=== PATIENT | female | born 1955 | race Caucasian/White ===

== ENCOUNTER → 2023-11-20 15:30 | Outpatient (REF) | payer MEDICARE, OTHER, SELFPAY | LOC: PAVMRI 15:30 | PROVIDERS: ATTENDING PHYSICIAN Physical Medicine & Rehabilitation; FAMILY PHYSICIAN Family Medicine | DX: M54.16 Radiculopathy, lumbar region (principal) | CPT/HCPCS: 72148 ==

== ENCOUNTER → 2024-04-17 14:31 | Outpatient (REF) | payer MEDICARE, OTHER, SELFPAY | LOC: WDC 14:31 | PROVIDERS: ATTENDING PHYSICIAN Family Medicine | DX: Z12.31 Encounter for screening mammogram for malignant neoplasm of breast (principal) | CPT/HCPCS: 77063; 77067 ==

== ENCOUNTER → 2024-11-06 12:53 | Outpatient (REF) | payer MEDICARE, OTHER, SELFPAY | LOC: HWRAD 12:53 | PROVIDERS: ATTENDING PHYSICIAN Family Medicine | DX: Z87.891 Personal history of nicotine dependence (principal) | CPT/HCPCS: 71271 ==

== ENCOUNTER → 2024-12-17 14:19 | Outpatient (REF) | payer MEDICARE, OTHER, SELFPAY | LOC: HWRAD 14:19 | PROVIDERS: ATTENDING PHYSICIAN Internal Medicine Critical Care Medicine; FAMILY PHYSICIAN Family Medicine | DX: R91.8 Other nonspecific abnormal finding of lung field (principal) | CPT/HCPCS: 71250 ==

== ENCOUNTER 2024-12-23 06:15 | Day surgery (SDC) | payer MEDICARE, OTHER, SELFPAY ==
[2024-12-18 12:58] VITALS: BMI 21.8
[2024-12-23] VITALS (9 sets, daily range): BP systolic 100–156; BP diastolic 60–85; BMI 21.8
== END 2024-12-23 12:40 | disposition home or self-care (01) ==
LOC: SDS 06:15
PROVIDERS: ATTENDING PHYSICIAN Internal Medicine Critical Care Medicine
DX: C34.11 Malignant neoplasm of upper lobe, right bronchus or lung (principal); R91.1 Solitary pulmonary nodule; R59.0 Localized enlarged lymph nodes
CPT/HCPCS: 31629; 31623; 31628; 31627; 31624; 31654; 88173; 88305; 71045; 76000; 81459; 88112; 88333; 88341; 88342; 94640; C1887

== ENCOUNTER → 2025-01-03 09:04 | Outpatient (REF) | payer MEDICARE, OTHER, SELFPAY | LOC: PAVMRI 09:04 | PROVIDERS: ATTENDING PHYSICIAN Internal Medicine Critical Care Medicine; FAMILY PHYSICIAN Family Medicine; REFERRING PHYSICIAN Thoracic Surgery (Cardiothoracic Vascular Surgery) | DX: C34.90 Malignant neoplasm of unspecified part of unspecified bronchus or lung (principal) | CPT/HCPCS: 70553; A9575 ==

== ENCOUNTER → 2025-01-08 08:22 | Outpatient (REF) | payer MEDICARE, OTHER, SELFPAY | LOC: MRI 08:22 | PROVIDERS: ATTENDING PHYSICIAN Internal Medicine Critical Care Medicine; FAMILY PHYSICIAN Family Medicine | DX: C34.90 Malignant neoplasm of unspecified part of unspecified bronchus or lung (principal); E27.8 Other specified disorders of adrenal gland | CPT/HCPCS: 74183; A9575 ==

== ENCOUNTER 2025-01-21 07:27 | Inpatient (IN) | payer MEDICARE, OTHER, SELFPAY ==
[2025-01-15 12:39] VITALS: BMI 23.8
[2025-01-15 12:58] LABS: % Basophils 0.5 % (0-2); % Eosinophils 6.9 % (0-6); % Immature Granulocytes 0.2 % (0-0.5); % Lymphocytes 30.2 % (20.5-51.1); % Monocytes 6.7 % (1.7-9.3); % Neutrophils 55.5 % (42.2-75.2); Absolute Eosinophils 0.4 10^3/uL (0-0.7); Absolute Lymphocytes 1.9 10^3/uL (1.2-3.4); Absolute Monocytes 0.4 10^3/uL (0.1-0.6); Absolute Neutrophils 3.5 10^3/uL (1.4-6.5); Hematocrit 38.8 % (37.0-47.0); Hemoglobin 12.9 g/dL (12.0-16.0); Mean Corp Hgb Conc. 33.2 g/dL (33.0-37.0); Mean Corpuscular Hgb 32.7 pg (27.0-31.0); Mean Corpuscular Volume 98.2 fL (81.0-99.0); Mean Platelet Volume 10.3 fL (7.4-10.4); Nucleated Red Blood Cells % 0 %; Platelet Count 219 10^3/uL (130-400); Red Blood Cell Count 3.95 10^6/uL (4.20-5.40); Red Cell Dist. Width 11.9 % (11.5-14.5); White Blood Cell Count 6.3 10^3/uL (4.8-10.8)
[2025-01-15 13:03] LABS: Urine Albumin Negative (Neg - Trace); Urine Bilirubin Negative (Negative); Urine Character Clear (Clear); Urine Color Yellow; Urine Glucose Negative (Negative); Urine Ketone Negative (Negative); Urine Leukocyte Negative (Negative); Urine Nitrite Negative (Negative); Urine Occult Blood Negative (Negative); Urine Urobilinogen Negative (Neg - 1+)
[2025-01-15 13:05] LABS: INR 0.95; PT 13.1 Sec (11.4-14.6)
[2025-01-15 13:06] LABS: APTT 30.7 Sec (23.4-35.0)
--- NOTE | 2025-01-15 13:37 | CM ---
Chart reviewed. Met with the patient in PAT. Reviewed preoperative and postoperative instructions and restrictions, along with showering guidelines. Gave patient 2 soaps. Patient is agreeable to a home visit by CT Transitional RN. Patient is
independent of ADLS, lives with her in a 2 STH, 1st level set up, 1-2 S[place], 0 DME. Plan is for the patient to return home with CT Transitional RN. CM to follow
[2025-01-15 14:12] LABS: ALT (SGPT) 33 U/L (0-35); AST (SGOT) 33 U/L (14-36); Albumin 4.6 g/dl (3.5-5.0); Alkaline Phosphatase 106 U/L (38-126); Blood Urea Nitrogen 15 mg/dl (7-17); Calcium 9.3 mg/dl (8.4-10.2); Carbon Dioxide 25 mmol/L (22-30); Chloride 105 mmol/L (98-107); Direct Bilirubin 0.1 mg/dl (0.0-0.4); Estimated Creatinine Clearance 59 ml/min; Glucose 83 mg/dl (70-99); Potassium 4.5 mmol/L (3.5-5.1); Sodium 138 mmol/L (135-145); Total Bilirubin 0.6 mg/dl (0.2-1.3); eGFR > 60.00
[2025-01-21] VITALS (12 sets, daily range): BP systolic 96–152; BP diastolic 54–75; BMI 24.4
--- NOTE | 2025-01-21 08:30 | PTCARENOTE ---
Addendum entered by Ashli Lambert RN 01/21/25 10:31:
pt transported to OR via bed w/ x3 and sequentials, went home.
Original Note:
pt admitted to CVICU, pt states showered last night and this am w/ CHG soap. pt states had black coffee, water and Pedialyte this am, CONDITIONER TENDER Teresa aware, otherwise NPO. admission and home meds reviewed. pt washed w/ CHG wipes, gown changed. ABO
drawn. VS completed. surgical site marked by Dr. Ferguson. at bedside.
--- NOTE | 2025-01-21 11:07 | W.CVOR.SURPR ---
CVOR Surgeon Immed Pre Op
-
I have examined this patient prior to performance of the scheduled procedure.
The patient's condition is unchanged from the time of the dictated/written History and
Physical and the patient is able to undergo the scheduled procedure.
RATS RUL + LN, possible segment/wedge
[2025-01-21 11:11] LABS: Urine Albumin Negative (Neg - Trace); Urine Bilirubin Negative (Negative); Urine Character Clear (Clear); Urine Color Yellow; Urine Glucose Negative (Negative); Urine Ketone Negative (Negative); Urine Leukocyte Negative (Negative); Urine Nitrite Negative (Negative); Urine Occult Blood Negative (Negative); Urine Urobilinogen Negative (Neg - 1+)
--- NOTE | 2025-01-21 12:14 | CM ---
pt in OR today, cm to follow
--- NOTE | 2025-01-21 13:17 | W.PN.CT.SURG ---
CT Surgery Operative Note
-
THORACIC SURGERY OPERATIVE REPORT
Preoperative Diagnosis: Pulmonary adenocarcinoma the right upper lobe
Postoperative Diagnosis: Same
Procedure(s) Performed:
1. Robotic assisted thoracic surgery [RATS]
2. Extended wedge resection of the right upper lobe with intraoperative frozen section for margin
3. Radical lymph node dissection
4. Preoperative serratus regional block by anesthesia
Date of Surgery: 01/21/2025
Comorbidities:
1. Right upper lobe pulmonary adenocarcinoma
2. Tobacco abuse, former
3. Hepatitis C
4. Degenerative disc disease
5. Anxiety/depression
6. GERD
Attending Surgeon: Alex Ferguson MD, MS
Assistants: Kelli Moreno PA-C (present and necessary to diver assistant, exchanging robotic instruments, retraction, suction, exposure, suture management, and wound closure under my direction)
Anesthesiology: Ehsan Mcgrath MD and Victoriano Padilla CRNA
Scrub and Circulating RNs: Mel Armando RN, Oscar Miranda RN
Anesthesia: Dual Lumen GETA
EBL: 80 cc
Products: None
Indication(s) for Procedures: This is a 69-year-old female who was found to have a bilobed 1.9 x 1.6 cm soft tissue mass in the lateral aspect the right upper lobe. Biopsy came back as pulmonary adenocarcinoma. Lymph node assessment was negative.
She was offered surgical resection as her primary form of treatment which she accepted.
Findings: There were no obvious intrathoracic metachronous lesions. There was obvious puckering on the surface of the lung at the right upper lobe corresponding to the location of the mass. She did well developed fissures. Lymph nodes were
harvested in a circumferential fashion as usual. I did develop the fissure in order to allow more separation of the lobes to facilitate the stapler. Using 3 loads of green load staplers, was able to obtain a good margin around the mass, this was
sent out to pathology which was verified to be a negative margin (>5mm with the staple line excluded). Overall there was a paucity of lymph nodes, any that were seen were harvested. There is no significant air leak at conclusion of the case and no
significant loss of tidal volume.
Specimen(s):
Station 8, x 1 nodes
Station 10, x 2 nodes
Station 2/4, x 2 nodes
Station 7, x 2 nodes
Extended wedge of the right upper lobe
Description of Procedure: The patient was taken to the operating room. Induction via general anesthesia with endotracheal intubation was performed and peripheral venous access and arterial monitoring were inserted. Their identity and procedure to be
performed were verified and they were positioned with the right side up on the operating table. The patient was then prepped and draped in a sterile fashion. A preoperative time-out was performed with all members of the team present. A Veress
needle was used to insufflate the chest after isolating the lung. An 8 mm port was placed in the midaxillary line at approximately the eighth intercostal space and confirmed to be intrathoracic without significant pulmonary injury. The chest was
surveyed for any evidence of metastatic disease. Patient tolerate insufflation without complication. 2 additional 12 mm trocars were placed on either side under camera guidance and a third 8 mm trocar was placed along the back. A 12 mm assistant manager/embalmer
port was placed in the 11th intercostal space above the insertion of the diaphragm.
The thoracic cavity was inspected for evidence of metastatic disease. None was observed. We started with mobilization of the inferior pulmonary ligament. We worked our way clockwise dissecting out the hilum and harvest any lymph nodes identified.
The fissure was then developed in order to facilitate the stapler. The mass was visible on the surface of the lung with puckering of the visceral pleura. I marked this out to provide a good margin of approximately 2 cm using a bipolar cautery.
Next multiple fires of 60 mm green load staplers were performed to resect the mass. This was then placed into a specimen bag and extracted from the chest cavity and sent off for intraoperative frozen section. This came back as negative.
Additional lymph nodes were then harvested as part of the staging process. CoSeal was used to reinforce both the hilum and suture lines. After confirming hemostasis, the lung was fully inflated and all ports were removed. Incisions were closed in
3 layers including the fascia, dermal, and epidermis. Additional local anesthesia was injected into all incision sites. The skin wound was cleansed and sealed with Dermabond glue.
All instrument, sponge, and needle counts were confirmed to be correct x 2 at the end of the operation. The patient was transferred to the cardiac intensive care unit extubated in critical but stable condition.
I, Dr. Alex Ferguson, was present, scrubbed for, and performed all critical elements of this procedure.
Alex Ferguson MD, MS
Cardiothoracic Surgeon
[facility]
This operative dictation was created using the alphacityguides dictation system. Please excuse any grammatical, typographical, or 'sound alike' errors
[2025-01-21] MEDS: DILAUDID 0.25 MG IV ×2 (14:03→21:43)
--- NOTE | 2025-01-21 15:45 | PTCARENOTE ---
pt received from PACU @~1500, oriented x4, drowsy but arousable, when awakens c/o R lateral back pain. pupils +2, pinpoint. SB/SR on the monitor, HR 50-60s. SBP 120-140s. palpable pulses. pt on RA, 92-97% POX. shallow breaths. CTx1 to WS, no air
leak, +crepitus on R back below scapula, CARDIOVASCULAR TECH Teresa aware. pt abdomen s/n, hypoactive BS. denies n/v. DTV. R lateral incisions FURNACE INSTALLER HELPER, approximated, surgical adhesive in place. R pleural CT site dressed w/ 4x4 and ABD. PIV x2. L radial Ashley flushed,
zeroed, and calibrated. and son at bedside. see worklist for VS, I&O, and assessment.
[2025-01-21] MEDS: TYLENOL PO (15:58)
[2025-01-21] MEDS: ULTRAM 50 MG PO (16:18)
[2025-01-21] MEDS: NEURONTIN 100 MG PO ×2 (16:18→21:42)
[2025-01-21] MEDS: SENOKOT 8.6 MG PO ×2 (16:18→20:12)
[2025-01-21] MEDS: NEURONTIN PO (16:18)
[2025-01-21] MEDS: MIRALAX 17 GRAMS PO (16:19)
[2025-01-21] MEDS: LIDOCAINE 4% PATCH 1 PATCH TOPICAL (16:19)
[2025-01-21] MEDS: HEPARIN 5000 UNITS SC ×2 (16:19→23:54)
--- NOTE | 2025-01-21 16:30 | PTCARENOTE ---
CXR completed. pt given ordered Ultram 50m PO for pain, Lidocaine patch applied. CT placed to -10cm suction per OIL ANALYST.
--- NOTE | 2025-01-21 17:30 | PTCARENOTE ---
pt CT placed to WS per ASL INTERPRETER, pt resting between care.
--- NOTE | 2025-01-21 20:00 | PTCARENOTE ---
Patient received in bed, AAOX3, Sinus Jaya on monitor, palpable pulses, no edema noted. Lungs diminished R>, pulse ox 97% on 2L. Abdomen soft with hypoactive bowel sounds, tolerating clear liquid diet. Due to void. R lateral chest tube to water
seal draining sanguineous, no air leak, small amount of crepitus on posterior back. 4 incisions sites approximated and open to air. #20 g in right forearm flushed and patent. Left radial Ashley transduced. Plan of care discussed, call vazquez within
reach.
[2025-01-21] MEDS: ANCEF 5 IV (20:12)
[2025-01-21] MEDS: FLEXERIL 5 MG PO (20:31)
[2025-01-21] MEDS: TYLENOL 1000 MG PO (21:42)
[2025-01-22] VITALS (11 sets, daily range): BP systolic 91–143; BP diastolic 40–93; BMI 25.1
[2025-01-22] MEDS: DILAUDID 0.5 MG IV ×2 (00:29→09:45)
--- NOTE | 2025-01-22 00:46 | PTCARENOTE ---
Patient reassessed, OOB to void. Having increased pain with movement, medicated per MAR, repositioned in bed
[2025-01-22] MEDS: ANCEF 5 IV ×2 (03:42→11:03)
--- NOTE | 2025-01-22 03:48 | W.PN.CT ---
Today's Communication / Plan
-
Plan:
-No major issues overnight. Hemodynamically and neurologically intact
-Successfully extubated in OR
-Kasper removed shortly after surgery
-D/C'd A-line this AM @ 0500
-Chest tube placed on water seal yesterday. Drainage: 100/205
-No air leak noted, No ptx or significant SQ emphysema on cxr this AM on my assessment, f/u official report
-Will consider water seal another day vs clamping and d/c of chest tube today
-OOB into chair/Ambulate
-F/U pathology
-Possible d/c home today
Assessment / Plan
-
Assessment:
-S/P Robotic assisted thoracic surgery [RATS]/Extended wedge resection of the right upper lobe with intraoperative frozen section for margin/Radical lymph node dissection/Preoperative serratus regional block by anesthesia, by Dr. Ferguson, 01/21/25, pod#1
-Right upper lobe pulmonary adenocarcinoma
-Tobacco abuse, former
-Hepatitis C
-Degenerative disc disease
-Anxiety/depression
-GERD
-Acute postop bradycardia, NSR @ 54 bpm
-Acute postop hypotension
Discussed patient care with: Cardiology, Nursing, Respiratory Therapy, Pharmacy and Care Team
Subjective
-
Date of Service: January 22, 2025
Pt c/o incisional pain, otherwise feels well
Objective Data
-
PT 13.1 Sec (11.4-14.6) 01/15/25 12:29
INR 0.95 01/15/25 12:29
APTT 30.7 Sec (23.4-35.0) 01/15/25 12:29
Vital Signs
Vital Signs
Temp Pulse Resp BP Pulse Ox
97.5 F 59 8 91/40 99
01/22/25 00:00 01/22/25 02:30 01/22/25 02:30 01/22/25 02:00 01/22/25 02:30
CT Intake/Output/Weight
01/21/25 01/21/25 01/22/25
06:59 18:59 06:59
Intake Total 150 / 390 240 / 390
Output Total 105 / 705 600 / 705
Balance 45 / -315 -360 / -315
SaO2: 99 (2L)
Physical Exam
-
General: Awake, Oriented and AOx3
Cardiovascular: Regular rate & rhythm, No Murmurs, No Rub and No Gallop
Respiratory: Decreased Breath Sounds (on right, otherwise clear)
Incision: Clean, Dry, Intact and Dressing Intact
Extremities: No Edema
Data Reviewed
-
Lab Results: Results Reviewed
Medications: Active Meds Reviewed
Chest X-Ray: Report Reviewed and Image Reviewed
ECG: Report Reviewed and Image Reviewed
[2025-01-22 03:57] LABS: Hematocrit 35.5 % (37.0-47.0); Hemoglobin 12.4 g/dL (12.0-16.0); Mean Corp Hgb Conc. 34.9 g/dL (33.0-37.0); Mean Corpuscular Hgb 33.4 pg (27.0-31.0); Mean Corpuscular Volume 95.7 fL (81.0-99.0); Platelet Count 215 10^3/uL (130-400); Red Blood Cell Count 3.71 10^6/uL (4.20-5.40); Red Cell Dist. Width 11.9 % (11.5-14.5)
--- NOTE | 2025-01-22 04:15 | PTCARENOTE ---
left radial [place] d/c as ordered, patient currently resting with eyes closed
[2025-01-22 04:18] LABS: Blood Urea Nitrogen 12 mg/dl (7-17); Carbon Dioxide 25 mmol/L (22-30); Chloride 108 mmol/L (98-107); Estimated Creatinine Clearance 66 ml/min; Glucose 129 mg/dl (70-99); Magnesium 2.5 mg/dl (1.6-2.3); Sodium 136 mmol/L (135-145); eGFR > 60.00
[2025-01-22] MEDS: TYLENOL 1000 MG PO ×3 (05:55→21:33)
[2025-01-22] MEDS: ROXICODONE 2.5 MG PO ×4 (06:28→20:25)
[2025-01-22] MEDS: FLEXERIL 5 MG PO (08:12)
[2025-01-22] MEDS: LIDOCAINE 4% PATCH 1 PATCH TOPICAL (08:13)
[2025-01-22] MEDS: HEPARIN 5000 UNITS SC ×2 (08:13→15:53)
[2025-01-22] MEDS: SENOKOT 8.6 MG PO ×2 (08:14→20:24)
[2025-01-22] MEDS: MIRALAX 17 GRAMS PO (08:14)
[2025-01-22] MEDS: NEURONTIN 100 MG PO ×3 (08:14→21:33)
--- NOTE | 2025-01-22 08:15 | PTCARENOTE ---
Assumed care of patient at 0700. Pt is awake, alert, and oriented. Pt with continued complaints of pain, PRN Flexeril administered. Pt remains SR with HR 73. BP 119/68 MAP 81. Pulse oximetry 95% on room air. Right lateral chest tube currently
clamped. Pt tolerating PO diet. Right lateral incisions approximated and MACKENZIE.
--- NOTE | 2025-01-22 12:30 | PTCARENOTE ---
Chest x-ray completed and reviewed. Chest tube removed by CT PRECIOUS. Pt resting comfortably in bed at this time.
--- NOTE | 2025-01-22 14:03 | CM ---
CM following for DC planning needs.
Met w/ patient at bedside. Patient is POD#1 from lung surgery. She reports that she is feeling well. She is hopeful for DC tomorrow.
We reviewed DC plan for home w/ CT Transitional Care RN.
CM to cont. to follow.
--- NOTE | 2025-01-22 16:30 | PTCARENOTE ---
Pt ambulated in hallway with RN, tolerated well. Pain more manageable s/p d/c of chest tube. Pt OOB in chair resting comfortably. Remains SR/SB with HR 50's-60's. BP 115/56 MAP 74. Pulse oximetry 97% on room air.
--- NOTE | 2025-01-22 21:00 | PTCARENOTE ---
Assumed care of pt from dayshift RN. Walking rounds completed. Pt AAOx3. SR on the tele monitor. HR high 50s-60s. BP stable. Palpable pulses throughout. No edema. Pt 95% on RA. Lung sounds diminished throughout. CT dressing C/D/I. Deep breathing and
IS encouraged. Abdomen soft/nontender. +BS. Pt voiding w/o issue. All surgical sites stable. PIVx2 intact. See MAR for pain medication administration. See worklist for full nursing assessment and interventions. Call vazquez within reach.
[2025-01-22] MEDS: DILAUDID 0.25 MG IV (21:34)
[2025-01-23 00:07] VITALS: BP 102/46
[2025-01-23] MEDS: HEPARIN 5000 UNITS SC ×2 (00:08→08:18)
[2025-01-23] MEDS: FLEXERIL 5 MG PO ×2 (00:17→08:18)
--- NOTE | 2025-01-23 00:33 | PTCARENOTE ---
No acute change in assessment. Pt is sinus radhika to sinus rhythm on the tele monitor. HR 50s-60s. BP stable. Pt is 94% on RA. All surgical sites stable. CT dressing C/D/I. Pt assisted OOB to void and then repositioned back into bed. See MAR for pain
medication administration. Call vazquez within reach.
--- NOTE | 2025-01-23 03:11 | W.PN.CT ---
Today's Communication / Plan
-
Plan:
-pod #2
-No major issues overnight. Hemodynamically and neurologically intact
-Successfully extubated in OR
-Kasper removed shortly after surgery
-Chest tube removed 04/24- tiny R apical PTX on CXR
-follow am CXR- stable tiny L PTX
-OOB into chair/Ambulate
-F/U pathology
-Possible d/c home today
Assessment / Plan
-
Assessment:
-S/P Robotic assisted thoracic surgery [RATS]/Extended wedge resection of the right upper lobe with intraoperative frozen section for margin/Radical lymph node dissection/Preoperative serratus regional block by anesthesia, by Dr. Ferguson, 01/21/25, pod#2
-Right upper lobe pulmonary adenocarcinoma
-Tobacco abuse, former
-Hepatitis C
-Degenerative disc disease
-Anxiety/depression
-GERD
-Acute postop bradycardia, NSR @ 54 bpm
-Acute postop hypotension
-Prophylaxis with sq Heparin
Discussed patient care with: Nursing and Care Team
Subjective
-
Date of Service: January 23, 2025
Objective Data
-
Lab Results
01/22/25 03:50
01/22/25 03:50
PT 13.1 Sec (11.4-14.6) 01/15/25 12:29
INR 0.95 01/15/25 12:29
APTT 30.7 Sec (23.4-35.0) 01/15/25 12:29
Vital Signs
Vital Signs
Temp Pulse Resp BP Pulse Ox
97.9 F 65 16 102/46 95
01/23/25 00:07 01/23/25 00:07 01/23/25 00:07 01/23/25 00:07 01/23/25 00:07
CT Intake/Output/Weight
01/22/25 01/22/25 01/23/25
06:59 18:59 06:59
Intake Total 240 / 390
Output Total 700 / 805 530 / 530
Balance -460 / -415 -530 / -530
SaO2: 95
Physical Exam
-
General: Awake, Oriented and AOx3
Cardiovascular: Regular rate & rhythm, No Murmurs, No Rub and No Gallop
Respiratory: Decreased Breath Sounds (on right, otherwise clear)
Incision: Clean, Dry, Intact and Dressing Intact
Extremities: No Edema b/l
Data Reviewed
-
Lab Results: Results Reviewed
Medications: Active Meds Reviewed
Chest X-Ray: Report Reviewed and Image Reviewed
ECG: Report Reviewed and Image Reviewed
[2025-01-23 04:21] VITALS: BP 116/54
[2025-01-23 04:25] VITALS: BMI 24.5
--- NOTE | 2025-01-23 04:45 | PTCARENOTE ---
No change in assessment. Pt is sinus radhika to sinus rhythm on the tele monitor. HR 50-60s. BP stable. Pt CT dressing C/D/I. All surgical sites stable. Pt OOB to void w/ minimal assist and then repositioned back in bed. No labs for AM - confirmed w/
CTPA. Call vazquez within reach.
[2025-01-23] MEDS: TYLENOL 1000 MG PO (06:02)
[2025-01-23 07:35] VITALS: BP 126/65
[2025-01-23] MEDS: MIRALAX 17 GRAMS PO (08:18)
[2025-01-23] MEDS: LIDOCAINE 4% PATCH 1 PATCH TOPICAL (08:18)
[2025-01-23] MEDS: NEURONTIN 100 MG PO (08:18)
[2025-01-23] MEDS: SENOKOT 8.6 MG PO (08:18)
--- NOTE | 2025-01-23 08:45 | PTCARENOTE ---
Assumed care of patient at 0700. Pt is awake, alert, and oriented. Pt with complaints of pain, PRN Flexeril administered. Pt remains SR with HR 62. BP 126/65 MAP 78. Pulse oximetry 97% on room air. Pt tolerating PO diet. Voiding without issue. Right
lateral incisions approximated with surgical adhesive.
--- NOTE | 2025-01-23 11:12 | W.DCSUMMARY ---
Discharge Summary
Discharge Data
Date of Admission: 01/21/25
Date of Discharge: 01/23/25
-
Pending Results: No
Hospital Course
Primary care physician: Dr. Dilshad Decker
Outpatient pulmonary: Dr. Dennis Michel
Inpatient consultants: None
Procedures:
1. Robotic assisted thoracic surgery [RATS]/Extended wedge resection of the right upper lobe with lymph node dissection by Dr. Alex Ferguson on 01/21/25
Primary Diagnosis:
1. Right upper Lobe Pulmonary Adenocarcinoma
Secondary Diagnoses:
1. Former Tobacco Misuse
2. Hepatitis C
3. Degenerative Disc Disease
4. Anxiety/Depression
5. GERD
HPI: Tea Tobar is a 69-year-old female with a PMHx previous tobacco misuse, hepatitis C, DDD, anxiety/depression, and GERD who initially presented for outpatient consultation of RUL adenocarcinoma. She was referred for a robotic assisted
thoracic surgery with wedge resection of the right upper lobe and lymph node dissection by Dr. Ferguson on 01/21/25.
Hospital course: Ms. Tobar was admitted for elective RATS with RUL wedge resection and radial lymph node dissection with Dr. Ferguson on 01/21/25. Please refer to surgeons operative report for complete dictation of surgery. Following her surgery, she
recovered within PACU and R pleural CT was placed to water-seal. Post-operative CXR showed a small R apical PTX, which resolved when replacing her CT to -10 cm H2O suction. She continued to have subsequent CXR's as support from her chest tube was
weaned and ultimately removed on postoperative day 1. Follow-up imaging after chest tube removal reported a small, stable, right pneumothorax with mild, unchanged, subcutaneous emphysema. Ms. Tobar remained hemodynamically stable postoperatively.
She was not initiated on a beta-elina for A-fib prophylaxis due to a resting heart rate of sinus bradycardia. On post-operative day 2, her pain was well controlled with oral pain medication, she was tolerating advancements to her diet, and she was
ambulating in the cornejo independently. The R pleural chest tube suture was intact without any drainage with instruction to have the suture be removed 1-days following discharge. She was deemed eligible for discharge on postoperative day 2 with plan
for outpatient follow-up with Transitional Care Nursing in 1-[address] Ferguson in 2-weeks.
Home medication changes:
- Post-operative pain regiment:
- Flexeril 5 mg PO q6h PRN for muscle spasms
- Tylenol 650 mg PO q6h PRN for mild pain
- Oxycodone 2.5-5 mg PO q6h PRN for moderate-severe pain
- Gabapentin 100 mg TID x 14 days for post-operative pain
- See provided list below for additional changes.
Discharge Plan
-
Patient Disposition: Home (Routine Discharge)
Discharge Diagnosis/Procedures: Right upper lobe wedge resection, lymph node disection
Condition: Good
Diet: No restrictions
Activity: No strenuous activity
Driving Restrictions: No driving for 2 weeks
Bathing Restrictions: OK to Shower
Others Tests: Obtain Chest X-Ray in 1 week.
Wound Care: Chest tube suture to be maintained until 10-days from discharge.
Specialty Instructions: Weigh Daily- Call MD for wt gain/loss 3 lbs overnight/5 lbs in 1 week
Activity Restrictions/Additional Instructions:
ACTIVITY:
- Continue to regain normal activity as tolerated. You can use stairs as tolerated
DRIVING RESTRICTIONS:
-No driving for 2-weeks or until you are no longer taking oxycodone.
WOUND CARE:
-Shower daily. Use soap & water.
-No lotions, creams or powders on incision area.
- Chest tube suture to be maintained for 10-days following surgery.
DIET:
- If you are diabetic, continue carb controlled diet.
SPECIALTY INSTRUCTIONS:
-If you smoke, you are instructed to quit. The [place] smoking hotline phone number is [phone]
Referrals:
CT Transitional Care Nurse [Outside]
Referral Note: The Cardiothoracic Transitional Care Nurse will call you to set up a visit in 1-2 days.
Dilshad Decker MD [Family Provider, Family Practice]
Alex Ferguson MD [Active, Cardiac Surgery] - 02/10/25 2:30 pm
Prescriptions:
New
acetaminophen 325 mg Tablet
650 mg PO Q4HPRN PRN (Reason: mild pain,headache,temp >101F ) Qty: 0 0RF
cyclobenzaprine 10 mg Tablet
5 mg PO Q8HPRN PRN (Reason: muscle spasm) Qty: 15 0RF
sennosides [Oksana-keyshawn] 8.6 mg Tablet
8.6 mg PO PRN PRN (Reason: Constipation) Qty: 0 0RF
gabapentin 100 mg Capsule
100 mg PO TID 14 Days Qty: 42 0RF
oxycodone 5 mg Tablet
2.5 mg PO Q6HPRN PRN (Reason: moderate-severe pain) Qty: 10 0RF
Continued
mecobalamin (vitamin B12) [B12 Active] 1,000 mcg Tablet,Chewable
500 mcg PO DAILY
estradiol 0.01 % (0.1 mg/gram) Cream
1 g VAGINAL .2XWEEK
calcium carbonate-vitamin D3 [Calcium 600 + D(3)] 600 mg-10 mcg (400 unit) Tablet
1 tab PO DAILY Qty: 0 0RF
melatonin 10 mg Tablet
10 mg PO HS Qty: 0 0RF
Discharge Orders:
Discharge Patient (As Directed); Ordered 01/23/25
Ordered By: Dennise Andino
Care Plan Goals
Care Plan Goals:
Problem: Readiness for enhanced knowledge related to diagnosis and treatment plan
Goal: Understand your diagnosis and treatment plan needs, including medications if applicable.
Instructions: Know your diagnosis, underlying causes and treatment plan options, including medications if applicable. Consult with your health care team to learn about your diagnosis and treatment plan, including medications if applicable.
Discharge Date and Time
Print Language: TAJIK
[2025-01-23 12:22] VITALS: BP 108/55
[2025-01-23] MEDS: ROXICODONE 2.5 MG PO (12:25)
--- NOTE | 2025-01-23 13:30 | PTCARENOTE ---
Chest tube dressing changed. Pt ambulated around entire unit with spouse, tolerated well. Pain controlled without use of IV pain medications. Pt remains SR/SB with HR 50's-60's. BP 108/55 MAP 70. Pulse oximetry 97% on room air. Right lateral
incisions approximated with surgical adhesive and MACKENZIE. Right lateral chest tube site suture intact and MACKENZIE. Discharge order received, reviewed discharge instructions with patient and spouse. Questions addressed. Peripheral IVs and telemonitor
removed. Volunteer escorted pt out via wheelchair. Pt stable at discharge.
== END 2025-01-23 14:14 | disposition home or self-care (01) | DRG 164 ==
LOC: CVICU 07:27
PROVIDERS: Nurse Practitioner; ADMITTING PHYSICIAN Thoracic Surgery (Cardiothoracic Vascular Surgery); FAMILY PHYSICIAN Family Medicine
PROC: 0BBC4ZZ Excision of Right Upper Lung Lobe, Percutaneous Endoscopic Approach (ICD-10-PCS; 2025-01-21)
PROC: 8E0W4CZ Robotic Assisted Procedure of Trunk Region, Percutaneous Endoscopic Approach (ICD-10-PCS; 2025-01-21)
PROC: 07T74ZZ Resection of Thorax Lymphatic, Percutaneous Endoscopic Approach (ICD-10-PCS; 2025-01-21)
DX: C34.11 Malignant neoplasm of upper lobe, right bronchus or lung (principal); J95.811 Postprocedural pneumothorax; B19.20 Unspecified viral hepatitis C without hepatic coma; F32.A Depression, unspecified; F41.9 Anxiety disorder, unspecified; K21.9 Gastro-esophageal reflux disease without esophagitis; I95.81 Postprocedural hypotension; R00.1 Bradycardia, unspecified; Y83.6 Removal of other organ (partial) (total) as the cause of abnormal reaction of the patient, or of later complication, without mention of misadventure at the time of the procedure; M50.30 Other cervical disc degeneration, unspecified cervical region; Z79.899 Other long term (current) drug therapy; Z87.891 Personal history of nicotine dependence
CPT/HCPCS: 88305; 88307; 88332; 32505; 36415; 71045; 80048; 80053; 81003; 82248; 83036; 83735; 85025; 85027; 85610; 85730; 86850; 86900; 86901; 86920; 87070; 88313; 88331; 88341; 88342; 93005; 99406

== ENCOUNTER → 2025-01-29 11:45 | Outpatient (REF) | payer MEDICARE, OTHER, SELFPAY | LOC: RAD 11:45 | PROVIDERS: ATTENDING PHYSICIAN Thoracic Surgery (Cardiothoracic Vascular Surgery); FAMILY PHYSICIAN Family Medicine | DX: Z98.890 Other specified postprocedural states (principal) | CPT/HCPCS: 71046 ==

== ENCOUNTER → 2025-05-16 13:25 | Outpatient (REF) | payer MEDICARE, OTHER, SELFPAY | LOC: WDC 13:25 | PROVIDERS: ATTENDING PHYSICIAN Family Medicine | DX: Z12.31 Encounter for screening mammogram for malignant neoplasm of breast (principal) | CPT/HCPCS: 77063; 77067 ==